=== PATIENT | female | born 1985 | race Caucasian/White ===

== ENCOUNTER 2016-12-16 13:23 | Emergency (ER) | payer OTHER ==
--- NOTE | 2016-12-16 13:40 | ER Document Report ---
ED Medical Screen (RME) - General Stated Complaint: ABDOMINAL PAIN Time seen by provider: 13:39 Mode of Arrival: Ambulatory Information source: Patient Notes: 31-year-old female presents to ED for lower abdominal pain mostly on the left now was going across. Denies nausea vomiting diarrhea or fever. States she has an IUD and does not have periods I have greeted and performed a rapid initial assessment of this patient. A comprehensive ED assessment and evaluation of the patient, analysis of test results and completion of medical decision making process will be conducted by an additional ED providers. Physical Exam - Vital signs Vitals: Temp Pulse Resp BP Pulse Ox 97.9 F 92 16 132/83 H 100 12/16/16 13:31 12/16/16 13:31 12/16/16 13:31 12/16/16 13:31 12/16/16 13:31 Course - Vital Signs Vital signs: Temp Pulse Resp BP Pulse Ox 97.9 F 92 16 132/83 H 100 12/16/16 13:31 12/16/16 13:31 12/16/16 13:31 12/16/16 13:31 12/16/16 13:31
--- NOTE | 2016-12-16 14:07 | ER Document Report ---
ED General - General Chief Complaint: Abdominal Pain Stated Complaint: ABDOMINAL PAIN Mode of Arrival: Ambulatory Information source: Patient Notes: Patient presents to the emergency department with lower abdominal pain mostly on the left side. She reports symptoms started Saturday after she had IUD placed. She reports she did talk to the provided place IUD and they said it would get better. She reports also a history of ovarian cysts. She denies other symptoms such as fever vomiting diarrhea. Patient also has a history of endometriosis and ovarian cyst. She reports some pressure with void, vaginal discharge. She received pelvic Saturday and UA when IUD was placed. Patient reports her dropped her off. TRAVEL OUTSIDE OF THE [place] IN LAST 30 DAYS: No - HPI Onset: Other - saturday Quality of pain: Achy, Cramping, Pressure Severity: Severe Pain Level: 4 Associated symptoms: None Exacerbated by: Denies Relieved by: Denies Similar symptoms previously: Yes Recently seen / treated by doctor: Yes - Related Data Allergies/Adverse Reactions: No Known Allergies Allergy (Unverified 12/16/16 14:51) Past Medical History - General Information source: Patient Last Menstrual Period: IUD - Social History Smoking Status: Current Every Day Smoker Cigarette use (# per day): Yes Chew tobacco use (# tins/day): No Frequency of alcohol use: None Drug Abuse: None Lives with: Family Family History: None Patient has suicidal ideation: No Patient has homicidal ideation: No Renal/ Medical History: Reports: Hx Ovarian Cysts, Other - Endometriosis. Denies: Hx Peritoneal Dialysis Past Surgical History: Reports: Hx Section, Hx Orthopedic Surgery Review of Systems - Review of Systems Notes: Review HPI for review of systems., All other systems negative Physical Exam - Vital signs Vitals: Temp Pulse Resp BP Pulse Ox 97.9 F 92 16 132/83 H 100 12/16/16 13:31 12/16/16 13:31 12/16/16 13:31 12/16/16 13:31 12/16/16 13:31 - Notes Notes: PHYSICAL EXAMINATION: GENERAL: Well-appearing and in no acute distress nontoxic looking HEAD: Atraumatic, normocephalic. EYES: Pupils equal round extraocular movements intact, sclera anicteric, conjunctiva are normal. ENT: nares patent, oropharynx clear without exudates. Moist mucous membranes. NECK: Normal range of motion, supple without lymphadenopathy LUNGS: CTAB and equal. No wheezes rales or rhonchi. HEART: Regular rate and rhythm without murmurs ABDOMEN: Soft, c/o LLQ pain. No guarding, no rebound BACK: Denies pain EXTREMITIES: Normal range of motion, no pitting edema. No cyanosis. NEUROLOGICAL: Cranial nerves grossly intact. Normal sensory/motor exams. PSYCH: Normal mood, normal affect. SKIN: Warm, Dry, normal turgor, no rashes or lesions noted Course - Re-evaluation Re-evalutation: 12/16/16 14:18 Patient instructed that she would be given Toradol for pain. She reports her can come back and pick her up. I instructed patient that we like to have the stage driver present before we give narcotics. 12/16/16 16:50 Daughter here to drive patient home. Patient instructed on results of ultrasound. She'll be prescribed Macrobid for UTI and Percocet for various is. [place] [employer]. Patient instructed to return to the emergency department for severe pain. - Vital Signs Vital signs: Temp Pulse Resp BP Pulse Ox 98.5 F 82 14 136/87 H 99 12/16/16 17:00 12/16/16 17:00 12/16/16 17:00 12/16/16 17:00 12/16/16 17:00 - Laboratory Result Diagrams: 12/16/16 13:45 12/16/16 13:45 Laboratory results interpreted by me: 12/16/16 12/16/16 12/16/16 13:45 13:45 13:45 WBC 11.2 H RBC 5.34 H Hgb 15.6 H Calcium 10.4 H Urine Blood SMALL H Ur Leukocyte Esterase MODERATE H - Diagnostic Test Radiology reviewed: Image reviewed, Reports reviewed - IMPRESSION: 1. IUD in place. No ovarian mass lesion identified. 2. No ultrasonic evidence of ovarian torsion. 2 cysts noted within the left ovary the more anterior cyst has complex internal echoes which could represent hemorrhage from hemorrhagic cysts. The more posterior cyst is anechoic and likely represents a simple cyst and/or follicle. 3. Otherwise unremarkable pelvic ultrasound. Discharge - Discharge Clinical Impression: Elevated blood pressure reading Abdominal pain Qualifiers: Abdominal location: lower abdomen, unspecified Qualified Code(s): R10.30 - Lower abdominal pain, unspecified Ovarian cyst Qualifiers: Laterality: left Qualified Code(s): N83.202 - Unspecified ovarian cyst, left side Urinary tract infection Qualifiers: Urinary tract infection type: site unspecified Hematuria presence: with hematuria Qualified Code(s): N39.0 - Urinary tract infection, site not specified Condition: Stable Disposition: HOME, SELF-CARE Instructions: Abdominal Pain ([facility]), Oral Narcotic Medication ([facility]), Ovarian Cyst ([facility]), Toradol Injection ([facility]), Urinary Tract Infection ([facility]), Nitrofurantoin ([facility]) Additional Instructions: *You have been evaluated for abdominal pain, ovarian cyst, UTI *Take medication as prescribed *Follow up with your [facility] OR primary care provider within 3 days *Return to ED for worsening condition, changes, needs, severe pain, concerns *Return to ED if not better in 24 hours Prescriptions: Nitrofurantoin/Nitrofuran Mac [Macrobid 100 mg Capsule] 100 mg PO BID #20 capsule Oxycodone HCl/Acetaminophen [Percocet 5-325 mg Tablet] 1 - 2 tab PO ASDIR PRN # 15 tablet PRN Reason: Forms: Elevated Blood Pressure, Return to Work
[2016-12-16] MEDS ORDERED: KETOROLAC TROMETHAMINE 60 MG/2 ML SDV IM ONE (14:15)
[2016-12-16 14:23] LABS: ABSOLUTE BASOPHILS # (AUTO) 0.1 10^3/uL (0.0-0.2); ABSOLUTE LYMPHOCYTES (AUTO) 2.5 10^3/uL (0.5-4.7); ABSOLUTE MONOCYTES (AUTO) 0.6 10^3/uL (0.1-1.4); ABSOLUTE NEUT (AUTO) 8.1 10^3/uL (1.7-8.2); BASOPHILS % (AUTO) 0.5 % (0-2); EOSINOPHILS % (AUTO) 0.2 % (0-6); HEMATOCRIT 46.1 % (36.0-47.0); HEMOGLOBIN 15.6 g/dL (12.0-15.5); HGB HCT DIFFERENCE 0.7; LYMPHOCYTES % (AUTO) 22.2 % (13-45); MEAN CORPUSCULAR HEMOGLOBIN 29.2 pg (27.0-33.4); MEAN CORPUSCULAR HGB CONC 33.8 g/dL (32.0-36.0); MEAN CORPUSCULAR VOLUME 86 fl (80-97); MONOCYTES % (AUTO) 5.3 % (3-13); RED BLOOD COUNT 5.34 10^6/uL (3.72-5.28); RED CELL DISTRIBUTION WIDTH 12.8 % (11.5-14.0); SEGMENTED NEUTROPHILS % (AUTO) 71.8 % (42-78); WHITE BLOOD COUNT 11.2 10^3/uL (4.0-10.5)
[2016-12-16 14:40] LABS: ALANINE AMINOTRANSFERASE 45 U/L (9-52); ALBUMIN 4.9 g/dL (3.5-5.0); ALKALINE PHOSPHATASE 71 U/L (38-126); ANION GAP 14 (5-19); ASPARTATE AMINO TRANSFERASE 31 U/L (14-36); BILIRUBIN,TOTAL 0.5 mg/dL (0.2-1.3); BLOOD UREA NITROGEN 9 mg/dL (7-20); CALCIUM 10.4 mg/dL (8.4-10.2); CARBON DIOXIDE 22 mmol/L (22-30); CHLORIDE 106 mmol/L (98-107); CREATININE RESULT 0.54 mg/dL (0.52-1.25); GLUCOSE 100 mg/dL (75-110); LIPASE 92.4 U/L (23-300); POTASSIUM 4.8 mmol/L (3.6-5.0); SODIUM 142.2 mmol/L (137-145); TOTAL PROTEIN 7.9 g/dL (6.3-8.2)
[2016-12-16] MEDS ORDERED: OXYCODONE-ACETAMINOPHEN 5-325 MG TABLET PO ONE ×2 (15:07→16:20)
[2016-12-16 15:09] LABS: APPEARANCE,URINE CLEAR; BILIRUBIN,URINE NEGATIVE (NEGATIVE); GLUCOSE, URINE NEGATIVE (NEGATIVE); KETONES,URINE NEGATIVE (NEGATIVE); LEUKOCYTE ESTERASE,URINE MODERATE (NEGATIVE); NITRITE,URINE NEGATIVE (NEGATIVE); PROTEIN,URINE NEGATIVE (NEGATIVE); URINE SPECIFIC GRAVITY 1.006; UROBILINOGEN,URINE NEGATIVE mg/dL (<2.0)
[2016-12-16 17:37] VITALS: BP 136/87
== END 2016-12-16 17:00 | disposition home or self-care (01) ==
LOC: ER 13:23
DX: N83.202 Unspecified ovarian cyst, left side (principal); N39.0 Urinary tract infection, site not specified; R03.0 Elevated blood-pressure reading, without diagnosis of hypertension; R10.30 Lower abdominal pain, unspecified; F17.210 Nicotine dependence, cigarettes, uncomplicated; Z97.5 Presence of (intrauterine) contraceptive device
CPT/HCPCS: 99284; 96372; 36415; 87086; 83690; 84703; 85025; 80053; 81001; 76830; J1885

== ENCOUNTER 2018-09-08 08:28 | Day surgery (SDC) | payer OTHER ==
[~2018-09-08 08:28] MED LIST: PROPOFOL INJ 200 MG/20 ML VIAL IV ONE
[2018-09-08 10:26] VITALS: BP 110/72
--- NOTE | 2018-09-08 14:16 | Operative Report ---
Operative Report DATE OF SURGERY: 09/08/18 Operative Report: The risks, benefits and alternatives of the procedure including the risks of bleeding, perforation requiring surgery are explained to the patient in detail and informed consent is obtained. The patient is brought back to the endoscopy suite and placed in a left, lateral decubital position. Timeout was called. Propofol medication is administered. Rectal examination is done which did not reveal any masses, tears or fissures. An Olympus videoscope was introduced into the patient's rectum. The scope was then carefully advanced all the way to the cecum. The cecum was identified by the usual anatomical landmarks including the ileocecal valve as well as the appendiceal office. Photodocumentation is obtained. The scope was then sequentially pulled back via the various segments of the colon including the ascending colon, hepatic flexure, transverse colon, splenic flexure, descending colon and finally into the rectosigmoid portions of the colon. Retroflexion maneuvers performed. The risks benefits and alternatives of the procedure explained to the patient in detail and informed consent is obtained.A GIF Olympus video scope was inserted into the patient's mouth and hypopharynx, the esophagus is identified intubated and insufflated, the scope was then advanced through the esophagus stomach and duodenum, retroflexion maneuver is done the esophagus stomach and first and second portions of the duodenum examined PREOPERATIVE DIAGNOSIS: Personal history of polyp. Sensation of globus, nausea and vomiting POSTOPERATIVE DIAGNOSIS: Inadequate prep. Sigmoid colon polyp that was removed via biopsy forceps. Internal hemorrhoids. Gastritis status post biopsy rule out Helicobacter pylori. Duodenitis. Esophagitis versus Kelly's esophagus status post biopsy OPERATION: Colonoscopy with biopsy. EGD with biopsy SURGEON: YESI MEAD ANESTHESIA: LMAC TISSUE REMOVED OR ALTERED: As noted above COMPLICATIONS: None. ESTIMATED BLOOD LOSS: None. INTRAOPERATIVE FINDINGS: As noted above. PROCEDURE: Patient tolerated the procedure well. No immediate postprocedure complications are noted. Patient discharged in good condition. Discharge date 09/08/2018. Discharge diet: Regular. Discharge activity: Regular. 2-3-week follow-up to discuss findings. 5-year surveillance colonoscopy. Patient is instructed to call the office or proceed to the emergency room should there be any further proximal questions. Wait on the pathology.
== END 2018-09-08 10:18 | disposition home or self-care (01) ==
LOC: END 08:28
PROVIDERS: ATTEND Internal Medicine Gastroenterology
DX: Z12.11 Encounter for screening for malignant neoplasm of colon (principal); D12.5 Benign neoplasm of sigmoid colon; Z86.010 Personal history of colon polyps; K29.50 Unspecified chronic gastritis without bleeding; K29.80 Duodenitis without bleeding; K20.9 Esophagitis, unspecified; F17.210 Nicotine dependence, cigarettes, uncomplicated
CPT/HCPCS: 43239; 45380; 81025; 88342 ×2; 88305 ×2; J2704; 813